=== PATIENT | female | born 1990 | race Caucasian/White ===

== ENCOUNTER 2022-09-11 16:36 | Emergency (ER) | payer SELFPAY ==
[2022-09-11] MEDS ORDERED: Dexamethasone 10 MG/ML VIAL ONE (18:41)
== END 2022-09-11 18:52 | disposition home or self-care (01) ==
LOC: CSHERS 16:36
DX: J02.0 Streptococcal pharyngitis (principal)
CPT/HCPCS: 87430; 99283; J1100